=== PATIENT | male | born 1965 | race Caucasian/White ===

== ENCOUNTER 2016-09-10 23:27 | Emergency (ER) | payer MEDICAID ==
[2016-09-10 23:45] LABS: BASO % 0.5 % (0-6); EOS % 2.5 % (0-6); GRAN % 56.8 % (47-80); HEMATOCRIT 39.9 % (42.0-52.0); HEMOGLOBIN 12.6 gm/dl (14.0-18.0); LYMPH % 27.4 % (16-45); MEAN CELL VOLUME 80.3 fl (81-97); MEAN CORPUSCULAR HGB CONC 31.6 g/dl (32-36); MEAN PLATELET VOLUME 9.5 fl (7.4-10.4); MONO % 12.8 % (0-9); PLATELET COUNT 302 K/uL (130-400); RED BLOOD COUNT 4.97 M/uL (4.40-5.70); RED CELL DISTRIBUTION WIDTH 14.7 % (11.5-14.5); WHITE BLOOD COUNT W/O DIFF 8.8 K/uL (4.2-12.2)
[2016-09-10 23:46] LABS: MEAN CORPUSCULAR HEMOGLOBIN 25.3 pg (27-33)
[2016-09-10] MEDS ORDERED: ASPIRIN 81 MG CHEWABLE TABLET PO ONE (23:46)
--- NOTE | 2016-09-10 23:46 | Emergency Department Record ---
History of Present Illness - General Chief Complaint: Chest Pain Stated Complaint: CHEST PAIN Time Seen by Provider: 09/10/16 23:38 Source: Patient, Family Mode of Arrival: Ambulatory Limitations: No limitations - History of Present Illness Initial Comments: 51 yo male presents with chest pain that started about 3 hours ago. The pain is a left sided ache and radiates to the neck area. He has a history of HTN, famly history of father with CAD in his 40's, and prior chest CTA that demonstrated coronary calcifications. No history of heart cath. He had a stress test about 1.5 years ago. [employer] is Ronda and PCP is Dante. He played golf this morning and noticed some shortness of breath walking. No pain then. The heaviness started around 6pm. He took 162mg of aspirin. MD Complaint: Chest pain -: Hour(s) Onset: During rest Pain Location: Left chest Pain Radiation: Neck Severity scale (1-10): 7 Quality: Heaviness Consistency: Intermittent Improves With: Medication-other Worsens With: Nothing Anginal Symptoms: Dyspnea, Nausea Treatments Prior to Arrival: Aspirin - Related Data Home Medications Medication Instructions Recorded Confirmed Last Taken Aspirin [Aspir-Low] 81 mg PO DAILY 09/10/16 09/10/16 09/10/16 Lisinopril [Zestril] 20 mg PO DAILY 09/10/16 09/10/16 09/10/16 Omeprazole [Prilosec] 20 mg PO DAILY 09/10/16 09/10/16 09/10/16 Verapamil HCl [Verapamil ER] 240 mg PO DAILY 09/10/16 09/10/16 09/10/16 Allergies Allergy/AdvReac Type Severity Reaction Status Date / Time No Known Drug Allergies Allergy Verified 09/10/16 23:34 Review of Systems Constitutional: Denies: Chills, Fever, Weakness Eyes: Denies: Eye discharge, Eye pain, Photophobia ENT: Denies: Congestion, Throat pain Respiratory: Reports: Dyspnea. Denies: Cough, Hemoptysis, Stridor, Wheezes Cardiovascular: Reports: Chest pain. Denies: Palpitations, Syncope Endocrine: Denies: Fatigue, Polydipsia Gastrointestinal: Denies: Abdominal pain, Diarrhea, Nausea, Vomiting Genitourinary: Denies: Hematuria, Urgency Musculoskeletal: Denies: Arthralgia, Back pain, Myalgia, Neck pain Skin: Denies: Bruising, Change in color, Rash Neurological: Denies: Headache, Numbness Psychiatric: Denies: Anxiety, Depression Hematological/Lymphatic: Denies: Blood Clots, Easy bleeding, Easy bruising, Swollen glands Physical Exam - General General Appearance: Alert, Oriented x3, Cooperative, No acute distress Limitations: No limitations - Head Head exam: Normal inspection - Eye Eye exam: Normal appearance, PERRL. negative: Conjunctival injection, Periorbital swelling - ENT ENT exam: Normal exam Ear exam: Normal external inspection Nasal Exam: Normal inspection Mouth exam: Normal external inspection Teeth exam: Normal inspection Throat exam: Normal inspection - Neck Neck exam: Normal inspection, Full ROM. negative: Tenderness - Respiratory Respiratory exam: Normal lung sounds bilaterally. negative: Respiratory distress - Cardiovascular Cardiovascular Exam: Regular rate, Normal rhythm, Normal heart sounds Peripheral Pulses: 2+: Radial (R), Radial (L) - GI/Abdominal GI/Abdominal exam: Soft - Rectal Rectal exam: Deferred - exam: Deferred - Extremities Extremities exam: Normal inspection, Full ROM, Normal capillary refill. negative: Pedal edema, Tenderness - Back Back exam: Reports: Normal inspection, Full ROM. Denies: Muscle spasm, Rash noted, Tenderness - Neurological Neurological exam: Alert, Normal gait, Oriented X3, Reflexes normal - Psychiatric Psychiatric exam: Normal affect, Normal mood Course - Reevaluation(s) Reevaluation #1: The patient took aspirin prior to arrival EKG 23:29 NSR, rate 63, intervals normal, axis normal, ST no acute changes. 09/10/16 23:41 Reevaluation #2: No acute changes on the CBC, CMP The Troponin is negative at 0.012 09/11/16 00:14 Reevaluation #3: 09/11/16 00:14 Reevaluation #4: I SW Dr Martines of [facility]. We discussed the results of the EKG, labs and Troponin He recommended transfer to [facility] for further evaluation 09/11/16 00:28 Reevaluation #5: I had a long conversion with the patient. I expressed my concerns about his symptoms and I expressed Dr Martines's recommendation for transfer and admission to [facility]. He declines the transfer and admission. We discussed that a heart attack has not been fully ruled out. I can not recommend not transferring or admitting him. I explained the risks of leaving include heart attack, . He fully understands the risks. I explained the AMA process of signing out in recognition of these risks and taking the responsibility of these risks. He is in agreement that he takes on this risk and is responsible for this risk. I informed him he may return at anytime or to go to [facility] at anytime. 09/11/16 00:44 Medical Decision Making - Lab Data Result diagrams: 09/10/16 23:43 09/10/16 23:43 Disposition Disposition: Discharge Clinical Impression: Left against medical advice Chest pain Qualifiers: Chest pain type: other chest pain Qualified Code(s): R07.89 - Other chest pain Disposition: Home, Self-Care Condition: (2) Stable Instructions: Chest Pain (ED), Against Medical Advice (ED) Additional Instructions: Return any time for additional evaluation Go directly to [facility] if you have any return of chest pain You are signing out AMA for your chest pain Take your aspirin daily Call Dr Bond on Monday without fail Forms: Patient Portal Access Time of Disposition: 00:49
[2016-09-10 23:57] LABS: ALB/GLOB RATIO 1.6 (1.1-1.8); ALBUMIN 4.5 gm/dL (3.5-5.0); ALKALINE PHOSPHATASE 91 U/L (38-126); ALT/SGPT 43 U/L (21-72); AST/SGOT 33 U/L (17-59); BILIRUBIN,TOTAL 0.39 mg/dL (0.2-1.3); BLOOD UREA NITROGEN 18 mg/dL (9-20); CREATINE PHOSPHOKINASE 353 U/L (55-170); CREATININE 1.1 mg/dL (0.66-1.25); EST GLOMERULAR FILTRATION RATE > 60 ml/min; GLUCOSE,RANDOM 104 mg/dL (70-110); INR 0.96; PARTIAL THROMBOPLASTIN TIME 24.7 SECONDS (24.5-39.1); PROTHROMBIN TIME (PATIENT) 10.9 SECONDS (9.5-12.1); TOTAL PROTEIN 7.4 gm/dL (6.3-8.2)
[2016-09-11 00:09] LABS: CKMB 2.4 ug/L (0-6)
[2016-09-11 00:10] LABS: TROPONIN I < 0.012 ng/mL (0.00-0.034)
== END 2016-09-11 01:02 | disposition home or self-care (01) ==
LOC: ER 23:27
DX: R07.89 Other chest pain (principal); R11.0 Nausea; I10 Essential (primary) hypertension; R06.02 Shortness of breath
CPT/HCPCS: 71010; 80053; 82550; 82553; 84484; 85025; 85610; 85730; 93005; 93010; 99284

== ENCOUNTER 2017-12-24 08:42 | Emergency (ER) | payer MEDICAID ==
[2017-12-24] MEDS ORDERED: DIPHENHYDRAMINE HCL 50 MG/ML VIAL IM ONE (09:02)
[2017-12-24] MEDS ORDERED: METHYLPREDNISOLONE PF 125MG/VIAL IM ONE (09:02)
--- NOTE | 2017-12-24 09:09 | Emergency Department Record ---
History of Present Illness - General Chief complaint: Bite Insect/other Stated complaint: WASP STINGS ON RT ARM Time Seen by Provider: 12/24/17 08:58 Source: Patient Mode of Arrival: Ambulatory Limitations: No limitations - History of Present Illness Initial comments: pt was stung by wasps 2 days ago. arm continues to swell. no alverto or swallowing. all rxn is local MD complaint: Insect bite/sting Onset/Timin -: Days(s) Location: RUE Severity: Moderate Improves with: None Worsens with: None Associated symptoms: Denies other symptoms Treatments Prior to Arrival: None - Related Data Home Medications Medication Instructions Recorded Confirmed Last Taken Metoprolol Succinate [Toprol Xl] 25 mg PO DAILY 12/24/17 12/24/17 12/24/17 Previous Rx's Medication Instructions Recorded Cephalexin [Keflex] 500 mg PO TID #15 cap 12/24/17 Prednisone [Prednisone 20Mg] 20 mg PO Q12HR #8 tab 12/24/17 Allergies Allergy/AdvReac Type Severity Reaction Status Date / Time No Known Drug Allergies Allergy Verified 12/24/17 08:43 Travel Screening - Travel/Exposure Within Last 30 Days Have you traveled within the last 30 days?: No - Travel/Exposure Within Last Year Have you traveled outside the [place] in the last year?: No - Additonal Travel Details Have you been exposed to anyone with a communicable illness?: No - Travel Symptoms Symptom Screening: None Review of Systems Reviewed: No additional complaints except as noted below Constitutional: Reports: As per HPI. Denies: Chills, Fever, Malaise, Night sweats, Weakness, Weight change Eyes: Reports: As per HPI. Denies: Eye discharge, Eye pain, Photophobia, Vision change ENT: Reports: As per HPI. Denies: Congestion, Dental pain, Ear pain, Epistaxis , Hearing loss, Throat pain Respiratory: Reports: As per HPI. Denies: Cough, Dyspnea, Hemoptysis, Stridor, Wheezes Cardiovascular: Reports: As per HPI. Denies: Arrhythmia, Chest pain, Dyspnea on exertion, Edema, Murmurs, Orthopnea, Palpitations, Paroxysmal nocturnal dyspnea, Rheumatic Fever, Syncope Endocrine: Reports: As per HPI. Denies: Fatigue, Heat or cold intolerance, Polydipsia, Polyuria Gastrointestinal: Reports: As per HPI. Denies: Abdominal pain, Constipation, Diarrhea, Hematemesis, Hematochezia, Melena, Nausea, Vomiting Genitourinary: Reports: As per HPI. Denies: Dysuria, Frequency, Hematuria, Incontinence, Retention, Testicular pain, Testicular mass, Urgency Musculoskeletal: Reports: As per HPI. Denies: Arthralgia, Back pain, Gout, Joint swelling, Myalgia, Neck pain Skin: Reports: As per HPI. Denies: Bruising, Change in color, Change in hair/ nails, Lesions, Pruritus, Rash Neurological: Reports: As per HPI. Denies: Abnormal gait, Confusion, Headache, Numbness, Paresthesias, Seizure, Tingling, Tremors, Vertigo, Weakness Psychiatric: Reports: As per HPI. Denies: Anxiety, Auditory hallucinations, Depression, Homicidal thoughts, Suicidal thoughts, Visual hallucinations Hematological/Lymphatic: Reports: As per HPI. Denies: Anemia, Blood Clots, Easy bleeding, Easy bruising, Swollen glands Past Medical History - SOCIAL HISTORY Smoking Status: Former smoker Alcohol Use: Occasional - RESPIRATORY Hx Respiratory Disorders: Yes Hx Sleep Apnea: Yes Hx of CPAP: Yes - CARDIOVASCULAR Hx Cardio Disorders: Yes Hx Hypertension: Yes - NEURO Hx Neuro Disorders: No - GI Hx GI Disorders: No - Hx Genitourinary Disorders: No - ENDOCRINE Hx Endocrine Disorders: No - MUSCULOSKELETAL Hx Musculoskeletal Disorders: No - PSYCH Hx Psych Problems: No - HEMATOLOGY/ONCOLOGY Hx Hematology/Oncology Disorders: No Family Medical History Any Significant Family History?: Yes Hx Heart Disease: Father, Brother/Sister *Heart Comment: early age hx Hx HTN: Mother Physical Exam - General General Appearance: Alert, Oriented x3, Cooperative, Mild distress - Head Head exam: Normal inspection - Eye Eye exam: Normal appearance, PERRL, EOMI Pupils: Normal accommodation - ENT ENT exam: Normal exam, Mucous membranes moist, Normal external ear exam, Normal orophraynx Ear exam: Normal external inspection. negative: External canal tenderness Nasal Exam: Normal inspection. negative: Discharge, Sinus tenderness Mouth exam: Normal external inspection, Tongue normal Teeth exam: Normal inspection. negative: Dental caries Throat exam: Normal inspection. negative: Tonsillar erythema, Tonsillar exudate - Neck Neck exam: Normal inspection, Full ROM. negative: Tenderness - Respiratory Respiratory exam: Normal lung sounds bilaterally. negative: Respiratory distress - Cardiovascular Cardiovascular Exam: Regular rate, Normal rhythm, Normal heart sounds - GI/Abdominal GI/Abdominal exam: Soft, Normal bowel sounds. negative: Tenderness - Rectal Rectal exam: Deferred - exam: Deferred - Extremities Extremities exam: Normal inspection, Full ROM, Normal capillary refill. negative: Tenderness - Back Back exam: Reports: Normal inspection, Full ROM. Denies: Muscle spasm, Rash noted, Tenderness - Neurological Neurological exam: Alert, CN II-XII intact, Normal gait, Oriented X3 - Psychiatric Psychiatric exam: Normal affect, Normal mood - Skin Skin exam: Dry, Intact, Normal color, Warm Type of lesion: Bite/sting (mutiple stings) Distribution of rash: RUE Course Vital Signs 12/24/17 08:47 Temperature 97.9 F Pulse Rate 68 Respiratory 20 Rate Blood Pressure 191/114 Pulse Ox 99 Disposition Disposition: Discharge Clinical Impression: Wasp sting Qualifiers: Encounter type: initial encounter Injury intent: accidental or unintentional Qualified Code(s): T63.461A - Toxic effect of venom of wasps, accidental ( unintentional), initial encounter Disposition: Home, Self-Care Condition: (1) Good Instructions: Insect Bite or Sting (ED) Additional Instructions: follow up with family doctor. rerurn sooner if worse. ice to area. benadryl as needed every 6 hours. take blood pressure meds Prescriptions: Prednisone [Prednisone 20Mg] 20 mg PO Q12HR #8 tab Cephalexin [Keflex] 500 mg PO TID #15 cap Quality - Quality Measures Quality Measures: N/A - Blood Pressure Screening Does Patient Have Any of the Following: Active Dx of HTN Blood Pressure Classification: Hypertensive Reading Systolic Measurement: 191 Diastolic Measurement: 114 Screening for High Blood Pressure: Patient Exclusion, Hx of HTN [[id number]]
== END 2017-12-24 09:24 | disposition home or self-care (01) ==
LOC: ER 08:42
DX: T63.461A Toxic effect of venom of wasps, accidental (unintentional), initial encounter (principal); R22.31 Localized swelling, mass and lump, right upper limb; I10 Essential (primary) hypertension; Z87.891 Personal history of nicotine dependence
CPT/HCPCS: 96372; 99282; 99283; J1200; J2930